=== PATIENT | male | born 1990 | race Caucasian/White ===

== ENCOUNTER 2017-03-13 01:48 | Emergency (ER) | payer OTHER ==
[2017-03-13 02:00] VITALS: BP 160/75; PULSE 80; RESP 16; TEMP 98.4; O2SAT 94
--- NOTE | 2017-03-13 02:11 | EDPHY ---
H & P Stated Complaint: lac to L wrist approx 1 inch working at home 30 min travel pta Time Seen by Provider: 03/13/17 02:00 HPI/ROS: Chief Complaint: Wrist laceration HPI: 26-year-old male accidentally cut his medial left wrist with a razor blade approximately 30 minutes ago while cutting a door. He is up-to-date in his tetanus. Denies any other injuries at this time. No numbness or weakness. Physical Exam: General: Awake, alert, no acute distress Left upper extremity: He has a 3 cm laceration to the medial aspect of his left wrist overlying the ulna. He has full flexion and extension strength of all his digits. Sensations intact in Radial, median and ulnar nerve distribution. Cap refills less than 2 seconds. He has 2+ radial and ulnar pulses. There are no deep tissue involvement. Skin: No rash - Personal History Current Tetanus/Diphtheria Vaccine: Yes Tetanus Vaccine Date: 2011 - Medical/Surgical History Hx Asthma: Yes Hx Chronic Respiratory Disease: No Hx Diabetes: No Hx Cardiac Disease: No Hx Renal Disease: No Hx Cirrhosis: No Hx Alcoholism: No Hx HIV/AIDS: No Hx Splenectomy or Spleen Trauma: No Other PMH: Med hx-Anxiety/depression,brain tumor/pituitary,asthma. surg-biopsy- brain tumor - Social History Smoking Status: Current every day smoker Constitutional: Initial Vital Signs Temperature (C) 36.9 C 03/13/17 01:56 Heart Rate 80 03/13/17 01:56 Respiratory Rate 16 03/13/17 01:56 Blood Pressure 160/75 H 03/13/17 01:56 O2 Sat (%) 94 03/13/17 01:56 O2 Delivery Mode Room Air Allergies/Adverse Reactions: No Known Allergies Allergy (Verified 07/06/16 20:25) Home Medications: Medication Instructions Recorded Albuterol [Proventil Inhaler] 1 - 2 puffs IH Q4 PRN 10/24/13 Desmopressin Acetate [Ddavp] 0.1 mg PO DAILY 10/24/13 Fluticasone/Salmeter 100/50Mcg 1 puffs IH BID 10/24/13 [Advair 100/50 (RX)] Hydrocortisone 10 mg PO TID 10/24/13 Sertraline HCl [Zoloft 100mg (RX)] 1 tab PO DAILY 10/24/13 Testosterone 07/06/16 Vyvanse 07/06/16 Gonadotropin,Chorionic,Human 03/13/17 Medical Decision Making Procedures: Procedure: Laceration repair. Verbal consent was obtained from the patient. The 3 cm laceration on the left wrist was anesthetized in the usual fashion. The wound was irrigated, draped and explored to its base with a gloved finger. There were no deep structures involved. No tendon injury was identified. The wound was repaired with a running 5-0 Ethilon suture. The wound repair was uncomplicated. The procedure was performed by myself. Departure - Departure Disposition: Home, Routine, Self-Care Clinical Impression: Laceration Condition: Good Instructions: Care For Your Stitches (ED), Laceration (ED) Additional Instructions: Stitches need to be removed in 10 days. Return to the emergency depart for increasing redness, discharge from the wound , opening of the wound, fevers, chills, streaking up your arm, or any other concerns. Referrals: Del Truong, [Primary Care Provider] - As per Instructions
== END 2017-03-13 02:31 | disposition home or self-care (01) ==
PROC: 0HQEXZZ Repair Left Lower Arm Skin, External Approach (ICD-10-PCS; principal; 2017-03-13)
DX: S61.512A Laceration without foreign body of left wrist, initial encounter (principal); J45.909 Unspecified asthma, uncomplicated; F17.200 Nicotine dependence, unspecified, uncomplicated; W26.8XXA Contact with other sharp object(s), not elsewhere classified, initial encounter; Y92.009 Unspecified place in unspecified non-institutional (private) residence as the place of occurrence of the external cause; Y99.8 Other external cause status; Y93.89 Activity, other specified